=== PATIENT | male | born 1985 | race Two or more races ===

== ENCOUNTER 2023-11-28 10:54 | Emergency (ER) | payer OTHER ==
[~2023-11-28] VITALS: Ht 190.5 cm; Wt 90.7 kg
[2023-11-28 11:32] VITALS: TEMP 98.4
[2023-11-28] MEDS ORDERED: IBUP-1955 PO (11:42)
[2023-11-28 12:18] VITALS: BP 128/85; O2SAT 100
== END 2023-11-28 12:19 | disposition home or self-care (01) ==
LOC: ER 11:02
DX: S62.306A Unspecified fracture of fifth metacarpal bone, right hand, initial encounter for closed fracture (principal); W22.01XA Walked into wall, initial encounter; Y93.89 Activity, other specified; Y92.89 Other specified places as the place of occurrence of the external cause; Y99.8 Other external cause status
CPT/HCPCS: 73130-TC